=== PATIENT | male | born 1945 | race Caucasian/White ===

== ENCOUNTER → 2018-06-27 | Outpatient (CLI) | payer MEDICARE ==
[~2018-06-27] MED LIST: CIPRO 500MG TA500 MG PO; DEPO-TESTOS100 MG/ML; FLOMAX 0.40.4 MG/CAP PO; HCTZ12.5TAB PO; NORCO 325 MG-101 TAB PO; NORCO 325 MG-51 TAB PO; PERCOCET 325 MG1 TAB PO; ROBAXIN 50500 MG/TAB PO; ZOCOR 40MG40 MG PO; ZOFRAN 4MG T4 MG/TAB PO
== END ==
LOC: COL.RAD 11:31
DX: R10.31 Right lower quadrant pain (principal)

== ENCOUNTER → 2020-05-03 | Outpatient (CLI) | payer MEDICARE ==
[~2020-05-03] MED LIST changes: +CENTRUM SILVER1 CTB PO; +CIALIS10 MG PO; +FOSAMAX5 MG PO; +HCTZ 25MG TAB25 MG PO; +MOBIC15 MG PO; +PROBIOTIC BLEN1 EACH PO; +PROTONIX 40MG T40 MG PO; +ULTRAM 50MG TAB50 MG PO; +VITAMIN B COMPL1 SGL PO; +VITAMIN D31000 I1 PO; +ZANAFLEX 4MG TAB4 MG PO
== END ==
LOC: COL.RAD 06:56
DX: M51.26 Other intervertebral disc displacement, lumbar region (principal); M48.8X6 Other specified spondylopathies, lumbar region; M51.27 Other intervertebral disc displacement, lumbosacral region; Z98.890 Other specified postprocedural states
CPT/HCPCS: A9585

== ENCOUNTER → 2020-10-04 | Outpatient (CLI) | payer MEDICARE | LOC: COL.RAD 10:57 | DX: M51.36 Other intervertebral disc degeneration, lumbar region (principal); M51.24 Other intervertebral disc displacement, thoracic region; Z96.89 Presence of other specified functional implants; Z98.890 Other specified postprocedural states ==

== ENCOUNTER 2020-11-02 15:01 | Day surgery (SDC) | payer MEDICARE ==
[~2020-11-02] VITALS: Ht 182.9 cm; Wt 73.5 kg
[~2020-11-02 15:01] MED LIST changes: -CENTRUM SILVER1 CTB PO; -FOSAMAX5 MG PO; -PROBIOTIC BLEN1 EACH PO; -VITAMIN B COMPL1 SGL PO; -VITAMIN D31000 I1 PO
[2020-11-02] MEDS ORDERED: FOSAMAX5 MG PO (15:48)
[2020-11-02] MEDS ORDERED: CIPRO 500MG TA500 MG PO (15:49)
[2020-11-02] MEDS ORDERED: CIALIS10 MG PO (15:49)
[2020-11-02] MEDS ORDERED: CENTRUM SILVER1 CTB PO (15:51)
[2020-11-02] MEDS ORDERED: PROBIOTIC BLEN1 EACH PO (15:51)
[2020-11-02] MEDS ORDERED: VITAMIN D31000 I1 PO (15:52)
[2020-11-02] MEDS ORDERED: VITAMIN B COMPL1 SGL PO (15:52)
[2020-11-02 16:19] VITALS: BP 136/83; PULSE 83; TEMP 98.8
[2020-11-02 19:28] VITALS: BP 156/70; PULSE 59; TEMP 97.9
--- NOTE | 2020-11-02 19:30 | NUR ---
Pt. arrived to the floor via bed. Pt. is A&OX3, assessment complete. INT to lt. forearm patent. Vitals stable. Pt. has urinated, ambulated and tolerated PO. Will monitor vitals before discharge.
[2020-11-02 19:45] VITALS: BP 141/78; PULSE 82; TEMP 98.3
[2020-11-02 20:15] VITALS: BP 131/74; PULSE 82
--- NOTE | 2020-11-02 20:15 | NUR ---
Pt. remains stable. Discharge paperwork reviewed with the pt. and his . Pt. voices understanding. INT discontinued from lt. forearm. Pt. escorted out by alexis Herring.
== END 2020-11-02 20:18 | disposition home or self-care (01) ==
LOC: SDCO 15:01 → SURG 19:27 → SDCO 20:18
DX: N21.0 Calculus in bladder (principal); N40.1 Benign prostatic hyperplasia with lower urinary tract symptoms; R39.15 Urgency of urination; R35.0 Frequency of micturition; E78.5 Hyperlipidemia, unspecified; I10 Essential (primary) hypertension; E23.0 Hypopituitarism; Z85.820 Personal history of malignant melanoma of skin; Z87.440 Personal history of urinary (tract) infections; Z85.51 Personal history of malignant neoplasm of bladder; Z79.899 Other long term (current) drug therapy; Z87.891 Personal history of nicotine dependence; K21.9 Gastro-esophageal reflux disease without esophagitis
CPT/HCPCS: OP; C1769; C2617; J0360; J0690; J2405; J2704; J3010; J7120; Q9967

== ENCOUNTER → 2020-11-04 | Outpatient (CLI) | payer MEDICARE ==
[~2020-11-04] MED LIST changes: +CENTRUM SILVER1 CTB PO; +FOSAMAX5 MG PO; +PROBIOTIC BLEN1 EACH PO; +VITAMIN B COMPL1 SGL PO; +VITAMIN D31000 I1 PO
== END ==
LOC: COL.RAD 09:36
DX: R22.42 Localized swelling, mass and lump, left lower limb (principal)

== ENCOUNTER → 2021-02-28 | Outpatient (CLI) | payer MEDICARE | LOC: COL.RAD 07:06 | DX: M48.02 Spinal stenosis, cervical region (principal); M50.11 Cervical disc disorder with radiculopathy, high cervical region; Z98.1 Arthrodesis status ==

== ENCOUNTER → 2021-08-01 | Outpatient (CLI) | payer MEDICARE | LOC: COL.VAS 10:30 | DX: M79.662 Pain in left lower leg (principal); M79.89 Other specified soft tissue disorders ==

== ENCOUNTER → 2023-05-23 | Outpatient (REF) | payer MEDICARE ==
[~2023-05-23] MED LIST changes: +ALIGN10.5 MG PO; +CALTRATE-600 W600 MG PO; +CENTRUM SILVER1 TAB PO; +DEPO-TESTOS200 MG/M1 IM; +FLEXERIL 1010 MG/TAB PO; +FLONASEALLERGY NS; +FOSAMAX 70MG TA70 MG PO; +MIRALAX PA17 GM/Dose PO; +MYRBETR25MG PO; +NAPROSYN500 MG PO; +NEURONTIN600 MG/TAB PO; +ROXICODONE 55 MG/TAB PO; +SENOKOT8.6 MG PO; +STOOL SOFTENER100 M2 PO; +TYLENOL 500MG500 MG PO; +VALIUM 5MG T5 MG/TAB PO; +VITAMIN B COMPL1 T16 PO
[2023-05-23 13:48] LABS: LYMPHOCYTE 20 % (20.0-51.0); NEUTROPHILS 68 % (42.0-75.2)
== END ==
LOC: ZCOL.LAB 11:53
PROVIDERS: Family Medicine
DX: D47.2 Monoclonal gammopathy (principal)